=== PATIENT | male | born 1985 | race Caucasian/White ===

== ENCOUNTER 2022-09-22 08:29 | Emergency (ER) | payer SELFPAY ==
[2022-09-22] MEDS ORDERED: Ondansetron 4 MG/2 ML SDV IVPUSH ONE (08:51)
[2022-09-22] MEDS ORDERED: Sodium Chloride 0.9% 1,000 ML IV ONE ×2 (08:51→08:54)
[2022-09-22] MEDS ORDERED: Ketorolac 30 MG/ML SDV IVPUSH ONE (08:51)
[2022-09-22] MEDS ORDERED: Morphine 4 MG/ML Syringe IVPUSH ONE (08:54)
[2022-09-22 09:23] LABS: BASOPHILS PERCENT AUTO 0.1 % (0.0-1.5); EOSINOPHILS ABSOLUTE AUTO 0.1 K/uL (0.0-0.7); EOSINOPHILS PERCENT AUTO 0.6 % (0.0-7.0); LYMPHOCYTES ABSOLUTE AUTO 1.2 K/uL (0.6-2.4); LYMPHOCYTES PERCENT AUTO 14.1 % (16.0-40.0); MEAN CORPUSCULAR HEMOGLOBIN 26.6 pg (27.0-32.0); MEAN CORPUSCULAR HGB CONC 33.3 g/dL (31.0-37.0); MEAN CORPUSCULAR VOLUME 79.7 fL (80.0-98.0); MONOCYTES ABSOLUTE AUTO 0.5 K/uL (0.0-0.8); MONOCYTES PERCENT AUTO 6.1 % (0.0-15.0); NEUTROPHILS ABSOLUTE AUTO 6.8 K/uL (1.4-5.7); NEUTROPHILS PERCENT AUTO 79.1 % (48.0-80.0); NRBC ABSOLUTE 0 K/uL; PLATELET COUNT,PLT 194 K/uL (150-400); WHITE BLOOD CELL COUNT,WBC 8.54 K/uL (4.0-11.0)
[2022-09-22 09:53] LABS: A/G RATIO 0.8 (0.9-1.6); ALBUMIN 3.7 g/dL (3.4-5.0); BILIRUBIN TOTAL 0.7 mg/dL (0.2-1.0); CALCIUM 9.3 mg/dL (8.5-10.1); CARBON DIOXIDE,CO2 22.5 mmol/L (21.0-32.0); CREATININE 0.9 mg/dL (0.8-1.3); EST CRCL DRUG DOSING (CG) 114.56 mL/min; MAGNESIUM 1.7 mg/dL (1.8-2.4); POTASSIUM,K 3.6 mmol/L (3.5-5.1); PROTEIN TOTAL,TP 8.5 g/dL (6.4-8.2)
[2022-09-22 09:57] LABS: LACTIC ACID 0.9 mmol/L (0.4-2.0)
== END 2022-09-22 11:09 | disposition home or self-care (01) ==
LOC: MW.ED 08:29
DX: K52.9 Noninfective gastroenteritis and colitis, unspecified (principal); E11.9 Type 2 diabetes mellitus without complications; Z20.822 Contact with and (suspected) exposure to COVID-19
CPT/HCPCS: 36415; 71045; 80053; 83605; 83690; 83735; 85025; 87040; 87635; 96361; 96374; 96375; 99284; J2270; J2405; J7030; U0002